=== PATIENT | male | born 1935 | race Caucasian/White ===

== ENCOUNTER 2018-01-09 11:30 | Outpatient (RCR) | payer MEDICARE, OTHER ==
[2013-07-02 14:56] VITALS: BP 110/57
[~2018-01-09 11:30] MED LIST: ADALAT CC30 MG PO; AMIODARONE HCL100 MG PO; CARDI-OMEGA1000 MG PO; DIGOXIN0.125 MG PO; HYDROCHLOR50 MG PO; MEDI-FIRST ASP325 MG PO; METOPROLOL TART25 MG PO; OXYCODONE5 M1 PO; TIROSINT75 MCG PO
== END 2018-01-09 12:00 | disposition home or self-care (01) ==
LOC: PT 11:30
DX: M75.81 Other shoulder lesions, right shoulder (principal)
CPT/HCPCS: G8985-GP

== ENCOUNTER → 2019-04-02 | Outpatient (CLI) | payer MEDICARE, OTHER ==
[2013-07-02 14:56] VITALS: BP 110/57
[2019-04-02 10:41] LABS: PROTHROMBIN TIME 24.3 SECONDS (9.0-12.0)
== END ==
LOC: LAB 10:05
PROVIDERS: Family Medicine
DX: I48.0 Paroxysmal atrial fibrillation (principal)

== ENCOUNTER → 2020-06-22 | Outpatient (CLI) | payer MEDICARE, OTHER ==
[2013-07-02 14:56] VITALS: BP 110/57
== END ==
LOC: LAB 12:28
DX: Z01.810 Encounter for preprocedural cardiovascular examination (principal); Z20.822 Contact with and (suspected) exposure to COVID-19

== ENCOUNTER → 2020-08-24 | Outpatient (CLI) | payer MEDICARE, OTHER ==
[2013-07-02 14:56] VITALS: BP 110/57
== END ==
LOC: LAB 14:26
DX: Z01.812 Encounter for preprocedural laboratory examination (principal); Z20.822 Contact with and (suspected) exposure to COVID-19

== ENCOUNTER 2024-07-23 15:14 | Emergency (ER) | payer MEDICARE, OTHER ==
[~2024-07-23] VITALS: Wt 79.5 kg
[~2024-07-23 15:14] MED LIST changes: +ALLOPURINOL300 M1 PO; +ASPIRIN E.C. 8181 MG PO; +ATORVASTATIN CA40 MG PO; +CEPHALEXIN500 M1 PO; +CITALOPRAM HBR10 MG PO; +FARXIGA10 MG PO; +FERREX 150150 MG PO; +FLOMAX0.4 MG PO; +FORMOTEROL20 MCG/2 M IH; +IPRATROPIUM BROM3 M1 IH; +IPRATROPIUM BROMIDE; +LOSARTAN POTASS25 MG PO; +LUTEIN20 M3 PO; +METOPROLOL SUCC25 M1 PO; +PANTOPRAZOLE SO40 MG PO; +PULMICORT0.5 MG/2 M IH
[2024-07-23] MEDS ORDERED: Haloperidol Lactate 5 MG/ML VIAL IM ONE (15:30)
[2024-07-23 15:38] LABS: URINE WBC 0 /hpf (0-3)
[2024-07-23 15:43] LABS: HEMATOCRIT 44.8 % (42.0-52.0); HEMOGLOBIN 13.7 g/dL (13.5-18.0); MEAN CELL VOLUME 88 fl (78-100); MEAN CORPUSCULAR HEMOGLOBIN 27 pg (27-31); MEAN CORPUSCULAR HGB CONC 31 g/dL (33-37); PLATELET COUNT 126 K/mm3 (130-400); RED BLOOD COUNT 5.12 M/mm3 (4.20-5.60); RED CELL DISTRIBUTION WIDTH 16.3 % (11.5-14.5); WHITE BLOOD COUNT 4.4 K/mm3 (4.8-10.8)
[2024-07-23 16:00] LABS: LYMPHOCYTE 11 % (20-51); MONOCYTE 13 % (3-10); NEUTROPHILS 76 % (42-75)
[2024-07-23 16:01] LABS: OVALOCYTES 1+
[2024-07-23 16:07] LABS: PH-URINE 5.5 (5.0 - 8.0); URINE APPEARANCE CLEAR (CLEAR); URINE BILIRUBIN NEGATIVE (NEGATIVE); URINE BLOOD NEGATIVE (NEGATIVE); URINE COLOR YELLOW (YELLOW); URINE GLUCOSE 1+ (NEGATIVE); URINE KETONE NEGATIVE (NEGATIVE); URINE LEUKOCYTE ESTERASE NEGATIVE (NEGATIVE); URINE NITRATE NEGATIVE (NEGATIVE); URINE PROTEIN(semi-quant) NEGATIVE (NEGATIVE)
[2024-07-23] MEDS ORDERED: DONEPEZIL PO (16:46)
[2024-07-23] MEDS ORDERED: [UNRECOGNIZED DRUG - OTHER] PO (16:46)
[2024-07-23] MEDS ORDERED: FARXIGA5 MG PO (16:47)
[2024-07-23] MEDS ORDERED: [UNRECOGNIZED DRUG - OTHER] PO (16:48)
[2024-07-23] MEDS ORDERED: LASIX40 M1 PO (16:49)
[2024-07-23] MEDS ORDERED: [UNRECOGNIZED DRUG - OTHER] PO (16:51)
[2024-07-23] MEDS ORDERED: PSYLLIUM PO (16:51)
[2024-07-23] MEDS ORDERED: SEROQUEL 2525 MG/TAB PO (16:53)
[2024-07-23] MEDS ORDERED: PROTONIX TR40 M1 PO (16:53)
[2024-07-23] MEDS ORDERED: SYNTHROID0.075 MG PO (16:54)
[2024-07-23] MEDS ORDERED: ZOLOFT25 M1 PO (16:55)
[2024-07-23] MEDS ORDERED: NS 500 ML IV SCH ×2 (18:15→19:30)
[2024-07-23] MEDS ORDERED: ARICEPT10 M1 PO (22:20)
[2024-07-23] MEDS ORDERED: Donepezil 5 MG TAB PO SCH (22:27)
[2024-07-23] MEDS ORDERED: QUEtiapine 25 MG TAB PO ONE (22:30)
[2024-07-24 12:55] VITALS: BP 106/72
== END 2024-07-24 12:55 ==
LOC: ED 15:14
PROVIDERS: Family Medicine
DX: R45.1 Restlessness and agitation (principal); R41.82 Altered mental status, unspecified; Z79.82 Long term (current) use of aspirin; Z95.0 Presence of cardiac pacemaker
CPT/HCPCS: J7040